=== PATIENT | male | born 1960 | race Caucasian/White ===

== ENCOUNTER 2020-04-11 11:45 | Emergency (ER) | payer OTHER ==
[2020-04-11] MEDS ORDERED: Lidocaine 1% PF 5 ML VIAL ONE (11:57)
[2020-04-11] MEDS ORDERED: Bacitracin 1 PK ONE (12:08)
[2020-04-11] MEDS ORDERED: Boostrix 0.5 ML (Tdap) VIAL ONE (12:09)
== END 2020-04-11 12:14 | disposition home or self-care (01) ==
LOC: BURERS 11:45
DX: L02.511 Cutaneous abscess of right hand (principal)
CPT/HCPCS: 10060; 90471; 90715